=== PATIENT | female | born 1975 | race Caucasian/White ===

== ENCOUNTER 2022-02-28 17:04 | Emergency (ER) | payer OTHER ==
[~2022-02-28] VITALS: Ht 165.1 cm; Wt 73.0 kg
[2022-02-28] MEDS ORDERED: LEVETIRACETAM 1000MG PREMIX 100 ML IV ONE (17:30)
[2022-02-28 18:06] LABS: BASOPHILS % 0.2 % (0.0-2.0); LYMPHOCYTES % 18.1 % (20.0-50.0); MEAN CORPUSCULAR HEMOGLOBIN 21.8 pg (28.0-32.0); MEAN CORPUSCULAR VOLUME 73.7 fL (81.0-99.0); MEAN PLATELET VOLUME 8.5 fl (7.4-10.4); MONOCYTES % 8.2 % (2.0-8.0); NEUTROPHILS % 72.5 % (40.0-76.0); PLATELET 438 x1000/uL (130-400); RED BLOOD CELL COUNT 3.67 mill/uL (4.2-5.4)
[2022-02-28 18:13] LABS: CHLORIDE 105 mEq/L (98-107)
[2022-02-28 18:18] LABS: HCG SCREEN NEGATIVE
[2022-02-28 18:27] LABS: ETHANOL BLOOD < 10 mg/dL; PHOSPHORUS 4.4 mg/dL (2.5-4.9)
[2022-02-28] MEDS ORDERED: KETOROLAC 60MG/2ML VIAL IM ONE (23:00)
[2022-02-28 23:04] VITALS: BP_DIAS 75
[2022-02-28 23:09] VITALS: BP_SYST 147
== END 2022-03-01 | disposition home or self-care (01) ==
LOC: ER 17:04 → CANBEDREQ 03-01 07:31
DX: R56.9 Unspecified convulsions (principal)
CPT/HCPCS: 36415; 80053; 80165; 80320; 83735; 84100; 84703; 85025; 96365; 96372; 99284; J1885; J1953; G0480